=== PATIENT | male | born 1980 | race Caucasian/White ===

== ENCOUNTER 2018-03-23 18:20 | Emergency (ER) | payer BC ==
[~2018-03-23] VITALS: Ht 193 cm; Wt 91.0 kg
[2018-03-23 18:23] VITALS: BP 136/85
== END 2018-03-23 19:40 | disposition home or self-care (01) ==
LOC: ED 19:10
DX: K62.89 Other specified diseases of anus and rectum (principal); L73.8 Other specified follicular disorders
CPT/HCPCS: 99283